=== PATIENT | female | born 1990 | race Caucasian/White ===

== ENCOUNTER 2017-11-02 13:14 | Emergency (ER) | payer OTHER | END 2017-11-02 15:28 | disposition home or self-care (01) | LOC: M ED 13:14 | DX: S60.572A Other superficial bite of hand of left hand, initial encounter (principal); W53.21XA Bitten by squirrel, initial encounter; Y92.008 Other place in unspecified non-institutional (private) residence as the place of occurrence of the external cause | CPT/HCPCS: 99283 ==

== ENCOUNTER 2017-12-16 18:37 | Emergency (ER) | payer OTHER | END 2017-12-16 20:00 | disposition home or self-care (01) | LOC: M ED 18:37 | DX: R51 Headache (principal); V49.40XA Driver injured in collision with unspecified motor vehicles in traffic accident, initial encounter; Y92.410 Unspecified street and highway as the place of occurrence of the external cause; F32.9 Major depressive disorder, single episode, unspecified; Z79.899 Other long term (current) drug therapy; Z79.3 Long term (current) use of hormonal contraceptives | CPT/HCPCS: 99283 ==

== ENCOUNTER 2018-11-14 03:15 | Emergency (ER) | payer OTHER ==
[~2018-11-14] VITALS: Ht 162.6 cm; Wt 90.9 kg
[~2018-11-14 03:15] MED LIST: AUGM875T28 PO; ESCI10TA2 PO; ESCI5SOL3 PO; [UNRECOGNIZED DRUG - REMARK] PO
[2018-11-14] MEDS ORDERED: FLUO20CA19 (03:25)
[2018-11-14] MEDS ORDERED: dexameTHASONE 20 MG/5 ML VIAL (J1100) IM ONE (07:30)
[2018-11-14] MEDS ORDERED: ACETAMINOPHEN 325 MG TAB PO ONE (07:30)
[2018-11-14 08:15] VITALS: BP 132/70
== END 2018-11-14 08:15 | disposition home or self-care (01) ==
LOC: M ED 03:15
DX: J02.9 Acute pharyngitis, unspecified (principal); Z79.899 Other long term (current) drug therapy
CPT/HCPCS: 87880; 96372; 99284; J1100

== ENCOUNTER → 2019-02-06 | Outpatient (REF) | payer OTHER ==
[~2019-02-06] MED LIST changes: +FLUO20CA19
== END ==
LOC: M LAB REF 09:59
PROVIDERS: ATTEND Physician Assistant
DX: J02.9 Acute pharyngitis, unspecified (principal)